=== PATIENT | male | born 1995 | race Caucasian/White ===

== ENCOUNTER 2016-07-08 11:55 | Emergency (ER) | payer SELFPAY ==
[~2016-07-08] VITALS: Ht 167.6 cm; Wt 65.8 kg
[~2016-07-08 11:55] MED LIST: AMOX1TAB61 PO; HYDR-971 PO
[2016-07-08 12:13] VITALS: BP 139/78
[2016-07-08] MEDS ORDERED: NAPR550T PO (12:39)
[2016-07-08] MEDS ORDERED: HYDR-971 PO (12:39)
[2016-07-08] MEDS ORDERED: ORPH100T PO (12:39)
--- NOTE | 2016-07-08 12:39 | PHYS DOC ---
Past Medical History Past Medical History: No Pertinent History Past Surgical History: No Surgical History Alcohol Use: Occasionally Drug Use: None Adult General Chief Complaint Chief Complaint: BACK PAIN OR INJURY [facility] HPI Patient is a 21 year old male who presents emergency room today with complaint of nonradiating low back pain, predominately on the right side for the past 3 days. Patient works with [employer]. He states he picked up a 60 or 80 pound bag of concrete interrupted over her shoulder. He states he felt a twinge in his back 3 days ago. Since that time these been experiencing progressive tightness and pain in his back. Patient denies radiation of this pain. Denies saddle anesthesia or incontinence of urine and bowel. Patient denies any history of spinal column fractures or spinal cord injuries. Patient denies any history of bone forming disorders. Review of Systems Review of Systems Constitutional: Denies fever or chills [] Eyes: Denies change in visual acuity, redness, or eye pain [] HENT: Denies nasal congestion or sore throat [] Respiratory: Denies cough or shortness of breath [] Cardiovascular: No additional information not addressed in HPI [] GI: Denies abdominal pain, nausea, vomiting, bloody stools or diarrhea [] : Denies dysuria or hematuria [] Musculoskeletal: Denies back pain or joint pain [] Integument: Denies rash or skin lesions [] Neurologic: Denies headache, focal weakness or sensory changes [] Endocrine: Denies polyuria or polydipsia [] Allergies Allergies Allergies Coded Allergies Type Severity Reaction Last Updated Verified sulfamethoxazole Allergy Intermediate 07/03/15 Yes trimethoprim Allergy Intermediate 07/03/15 Yes Physical Exam Physical Exam Constitutional: Well developed, well nourished, no acute distress, non-toxic appearance. [] HENT: Normocephalic, atraumatic, bilateral external ears normal, oropharynx moist, no oral exudates, nose normal. [] Eyes: PERRLA, EOMI, conjunctiva normal, no discharge. [] Neck: Normal range of motion, no tenderness, supple, no stridor. [] Cardiovascular:Heart rate regular rhythm, no murmur [] Lungs & Thorax: Bilateral breath sounds clear to auscultation [] Abdomen: Bowel sounds normal, soft, no tenderness, no masses, no pulsatile masses. [] Skin: Warm, dry, no erythema, no rash. [] Back: Back is normal in appearance. There is no overlying skin lesions to the back. There is no midline tenderness. There is tenderness to palpation the bilateral paraspinous soft tissues at the level of L3-L5. Patient complains of pain greater on the right than the left. Is no palpable defect, deformity or active spasm. Extremities: No tenderness, no cyanosis, no clubbing, ROM intact, no edema. [] Neurologic: Alert and oriented X 3, normal motor function, normal sensory function, no focal deficits noted. Strength is equal and symmetric in bilateral lower extremities. There is no evidence of dystrophic changes. Patient is able to ambulate with a steady, but antalgic gait. Psychologic: Affect normal, judgement normal, mood normal. [] Current Patient Data Vital Signs Vital Signs Date Time Temp Pulse Resp B/P Pulse Ox O2 Delivery O2 Flow Rate FiO2 07/08/16 12:13 97.4 108 16 94 Room Air 97.4 EKG EKG [] Radiology/Procedures Radiology/Procedures [] Course & Med Decision Making Course & Med Decision Making Pertinent Labs and Imaging studies reviewed. (See chart for details) [] Dragon Disclaimer Dragon Disclaimer This electronic medical record was generated, in whole or in part, using a voice recognition dictation system. Departure Departure Impression: Primary Impression: Lumbosacral strain Disposition: 01 HOME, SELF-CARE Condition: GOOD Referrals: NO PCP (PCP) Patient Instructions: Lumbosacral Strain Additional Instructions: 1. Take the medication as prescribed. 2. Review the discharge instructions provided for self-care and reasons to return the emergency department. 3. Use the pamphlet provided for assistance in finding a primary care doctor in which you may follow up within the next 7-10 days. Scripts Naproxen Sodium (Anaprox Ds)550 Mg Qpsult535 Mg PO BID #20 Prov:JAVIER HAY 07/08/16 Orphenadrine Citrate 100 Mg Tablet.er100 Mg PO BID muscle relaxer #14 Prov:JAVIER HAY 07/08/16 Hydrocodone/Apap 5-325 (Hollis 5-325 Tablet)1 Each Tablet1 Tab PO PRN Q6HRS PRN PAIN #15 TAB Prov:JAVIER HAY 07/08/16 JAVIER HAY Jul 08, 2016 12:39
== END 2016-07-08 12:50 | disposition home or self-care (01) ==
LOC: ER 11:55
DX: S39.012A Strain of muscle, fascia and tendon of lower back, initial encounter (principal); Z88.1 Allergy status to other antibiotic agents; Z88.2 Allergy status to sulfonamides; X58.XXXA Exposure to other specified factors, initial encounter; Y93.89 Activity, other specified; Y92.89 Other specified places as the place of occurrence of the external cause; Y99.8 Other external cause status
CPT/HCPCS: 99283